=== PATIENT | female | born 1945 | race Caucasian/White ===

== ENCOUNTER 2016-12-06 02:19 | Emergency (ER) | payer OTHER ==
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
== END 2016-12-06 03:40 | disposition home or self-care (01) ==
LOC: ER 02:19
DX: R07.0 Pain in throat (principal); R49.0 Dysphonia; E78.00 Pure hypercholesterolemia, unspecified; E11.9 Type 2 diabetes mellitus without complications; I10 Essential (primary) hypertension; Y09 Assault by unspecified means

== ENCOUNTER → 2017-03-12 | Outpatient (CLI) | payer OTHER | END | disposition home or self-care (01) | LOC: RAD.S 10:10 | DX: Z12.31 Encounter for screening mammogram for malignant neoplasm of breast (principal) ==